=== PATIENT | male | born 1950 | race Caucasian/White ===

== ENCOUNTER → 2020-06-18 | Outpatient (CLI) | payer OTHER ==
[~2020-06-18] MED LIST: ALLOPURINOL 30300 M1 PO; AMARYL1 MG; ATENOLOL 25 MG25 M1 PO; BACLOFEN 10MG T10 M1; BACLOFEN20 MG PO; FLUZONE 2045 MCG/011; GEMFIBROZIL 60600 MG; GLUCOPHAGE1000 MG PO; GLUCOPHAGE500 MG PO; GLUCOTROL XL2.5 MG PO; LEVOTHROID PO; LOPID600 MG PO; MOBIC15 MG PO; MONOPRIL10 MG PO; NEURONTIN600 MG; PAXIL20 MG PO; PNEUMOVAX25 MCG/0.5; ULTRAM 50MG TAB50 MG; ZANTAC 150MG T150 M1 PO
== END ==
LOC: M.CT 10:38
PROVIDERS: ATTEND Internal Medicine Cardiovascular Disease
DX: Z13.6 Encounter for screening for cardiovascular disorders (principal)